=== PATIENT | male | born 1975 | race Caucasian/White ===

== ENCOUNTER 2019-07-29 07:55 | Emergency (ER) | payer OTHER ==
[~2019-07-29] VITALS: Ht 180.3 cm; Wt 93.0 kg
[2019-07-29 08:03] VITALS: BP 158/106
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
[2019-07-29] MEDS ORDERED: NAPR-683 PO (08:50)
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
== END 2019-07-29 08:58 | disposition home or self-care (01) ==
LOC: ER 07:55
DX: S20.211A Contusion of right front wall of thorax, initial encounter (principal); V89.2XXA Person injured in unspecified motor-vehicle accident, traffic, initial encounter; Y93.I9 Activity, other involving external motion; Y92.488 Other paved roadways as the place of occurrence of the external cause; Y99.8 Other external cause status
CPT/HCPCS: 71101; 73000; 99284